=== PATIENT | male | born 1960 | race Caucasian/White ===

== ENCOUNTER 2018-06-12 08:13 | Inpatient (IN) | payer OTHER ==
[2018-06-12 08:14] VITALS: BMI 27.8
--- NOTE | 2018-06-12 09:06 | ED PDOC ---
HPI: Abdomen Time Seen by Provider: 06/12/18 08:33 Chief Complaint (Nursing): Abdominal Pain Chief Complaint (Provider): Abdominal Pain History Per: Patient History/Exam Limitations: no limitations Onset/Duration Of Symptoms: Days (x1 week) Current Symptoms Are (Timing): Still Present Additional Complaint(s): Elías Mcdonald Sr. is a 58 year old male presenting for evaluation of abdominal pain x1 week. Patient states the pain radiates to his lower back and bilateral shoulders. Patient reports an episode of diarrhea with red blood noted afterwards in his stool. Patient further reports associated dizziness, palpitations, and states that for the past month things he eat have "no taste." Patient reports a prior history of a "stomach issue" and states he was evaluated for colitis in the past. Patient denies any fevers, chills, nausea, vomiting, persistent chest pain, or difficulty breathing. PMD: Dr. Salazar Past Medical History Reviewed: Historical Data, Nursing Documentation, Vital Signs Vital Signs: Last Vital Signs Temp 97.8 F 06/12/18 08:14 Pulse 73 06/12/18 08:14 Resp 17 06/12/18 08:14 BP 123/67 06/12/18 08:14 Pulse Ox 98 06/12/18 08:14 - Medical History PMH: No Chronic Diseases - Surgical History Surgical History: No Surg Hx - Family History Family History: States: Unknown Family Hx - Social History Current smoker - smoking cessation education provided: No Alcohol: Social Drugs: Denies - Allergies Allergies/Adverse Reactions: Allergies Allergy/AdvReac Type Severity Reaction Status Date / Time No Known Allergies Allergy Verified 09/15/14 14:02 Review of Systems ROS Statement: Except As Marked, All Systems Reviewed And Found Negative Constitutional: Negative for: Fever, Chills Cardiovascular: Positive for: Palpitations. Negative for: Chest Pain Respiratory: Negative for: Shortness of Breath Gastrointestinal: Positive for: Abdominal Pain, Diarrhea, Other (blood in stool). Negative for: Nausea, Vomiting Genitourinary Male: Negative for: Dysuria, Frequency, Incontinence, Hematuria Musculoskeletal: Positive for: Shoulder Pain, Back Pain Neurological: Positive for: Dizziness Physical Exam - Reviewed Nursing Documentation Reviewed: Yes Vital Signs Reviewed: Yes - Physical Exam Appears: Positive for: Non-toxic, No Acute Distress Head Exam: Positive for: ATRAUMATIC, NORMAL INSPECTION, NORMOCEPHALIC Skin: Positive for: Normal Color, Warm, Dry. Negative for: Rash Eye Exam: Positive for: EOMI, Normal appearance, PERRL ENT: Positive for: Normal ENT Inspection Neck: Positive for: Normal, Painless ROM, Supple Cardiovascular/Chest: Positive for: Regular Rate, Rhythm. Negative for: Murmur Respiratory: Positive for: Normal Breath Sounds. Negative for: Respiratory Distress Gastrointestinal/Abdominal: Positive for: Soft, Tenderness (generalized, no focal areas of pain). Negative for: Guarding, Rebound Back: Positive for: L CVA Tenderness (mild), R CVA Tenderness (mild) Rectal: Positive for: Rectal Tone Is: (normal), Hemorrhoids (small external pile, (-) fissure), Other ([employer]ounder: JOAN Auguste was present during the entire exam) Extremity: Positive for: Normal ROM. Negative for: Pedal Edema, Deformity Neurologic/Psych: Positive for: Alert, Oriented (x3) - Laboratory Results Result Diagrams: 06/12/18 09:05 06/12/18 09:05 - ECG O2 Sat by Pulse Oximetry: 98 (RA) Pulse Ox Interpretation: Normal Medical Decision Making Medical Decision Makin: Impression: Abdominal pain Plan: -Type and screen -CMP -PT/PTT -Pepcid 20mg IVP -Occult blood -Reevaluation Scribe Attestation: Documented by Frank Isabel, acting as a scribe for Jackie Turk MD. Provider Scribe Attestation: All medical record entries made by the Scribe were at my direction and personally dictated by me. I have reviewed the chart and agree that the record accurately reflects my personal performance of the history, physical exam, medical decision making, and the department course for this patient. I have also personally directed, reviewed, and agree with the discharge instructions and disposition. 1.30p Patient still has intermittent pain. is concerned about his overall poor intake and recurrent pain. Imaging suggest acute diverticular disease possible diverticulitis. Will admit to observation. Case d/w Dr. Bedolla, covering Dr. Salazar's patients. Disposition - Clinical Impression Clinical Impression: Abdominal pain - Patient ED Disposition Is Patient to be Admitted: Yes Doctor Will See Patient In The: Hospital - Disposition Disposition: Transfer of Care Disposition Time: 14:00 Condition: FAIR Forms: [employer] (Slovenian) - Pt Status Changed To: Hospital Disposition Of: Observation - POA Present On Arrival: None
[2018-06-12 09:18] LABS: BASO % 0.6 % (0.0-2.0); EOS # 0.1 K/uL (0.0-0.7); EOS % 1.6 % (0.0-4.0); HEMOGLOBIN 15.9 g/dL (12.0-18.0); LYMPH # 2.6 K/uL (1.0-4.3); LYMPH % 39.2 % (20.0-40.0); MEAN CELL VOLUME 87.6 fl (80.0-94.0); MEAN CORPUSCULAR HGB CONC 33.1 g/dL (33.0-37.0); MEAN PLATELET VOLUME 7.3 fl (7.2-11.7); MONO # 0.7 K/uL (0.0-0.8); MONO % 10.7 % (0.0-10.0); NEUT # 3.2 K/uL (1.8-7.0); NEUT % 47.9 % (50.0-75.0); NRBC % 0.1 % (0.0-0.0); RBC 5.48 Mil/uL (4.40-5.90); RED CELL DISTRIBUTION WIDTH 14.3 % (11.5-14.5); WHITE BLOOD COUNT 6.6 K/uL (4.8-10.8)
[2018-06-12 09:25] LABS: PROTHROMBIN TIME 11.4 Seconds (9.8-13.1)
[2018-06-12 09:27] LABS: PARTIAL THROMBOPLASTIN TIME 33.6 Seconds (25.6-37.1)
[2018-06-12 09:42] LABS: ALB/GLOB RATIO 1.2 (1.0-2.1); ALBUMIN 4.6 g/dL (3.5-5.0); BLOOD UREA NITROGEN 12 mg/dl (9-20); CALCIUM 9.5 mg/dL (8.4-10.2); GFR NON-AFRICAN AMERICAN > 60
[2018-06-12 09:48] LABS: ALT/SGPT 38 U/L (21-72); AST/SGOT 48 U/L (17-59)
[2018-06-12] MEDS ORDERED: Sodium Chloride 0.9% 50 ML IV ONE (12:01)
[2018-06-12] MEDS ORDERED: Iohexol 300 100 ML IJ ONE (12:01)
--- NOTE | 2018-06-12 13:19 | CT ---
Date of service: 06/12/2018 PROCEDURE: CT Abdomen and Pelvis with contrast HISTORY: lower abdominal pain COMPARISON: None available. TECHNIQUE: CT scan of the abdomen and pelvis was performed after administration of intravenous contrast. Oral contrast was not administered. Coronal and sagittal reformatted images were obtained. Contrast dose: Radiation dose: Total exam DLP = 467.65 mGy-cm. This CT exam was performed using one or more of the following dose reduction techniques: Automated exposure control, adjustment of the mA and/or kV according to patient size, and/or use of iterative reconstruction technique. FINDINGS: LOWER THORAX: The visualized lungs are clear. LIVER: Mild hepatomegaly and diffuse fatty liver. No gross lesion or ductal dilatation. GALLBLADDER AND BILE DUCTS: Well distended. No calcified gallstones, wall thickening or pericholecystic fluid. PANCREAS: Normal in size with homogeneous enhancement. No gross lesion or ductal dilatation. SPLEEN: Normal in size and appearance. ADRENALS: No discrete nodule. KIDNEYS AND URETERS: Normal in size with homogeneous enhancement. No hydronephrosis. No solid mass. VASCULATURE: No aortic aneurysm. BOWEL: Evaluation of the bowel is limited in the absence of oral contrast. There is moderate segmental dilatation of the mid small bowel loops with air-fluid levels the distal small bowel loops are fluid-filled however normal in caliber. There is also fluid in the ascending colon. There is apparent mild circumferential mural thickening in the transverse, descending and sigmoid colon. There is scattered sigmoid diverticulosis without CT evidence for acute diverticulitis. APPENDIX: Normal appendix. PERITONEUM: No free fluid. No free air. LYMPH NODES: No enlarged lymph nodes. BLADDER: Well distended and normal in appearance. REPRODUCTIVE: The uterus is normal in size. BONES: No acute fracture. Within normal limits for the patient's age. OTHER FINDINGS: None. IMPRESSION: Moderate segmental dilatation of mid small bowel loops, fluid in normal caliber distal small bowel loops and fluid in the ascending colon. Findings could be related to nonspecific acute infectious/inflammatory enteritis and colitis. Apparent mild circumferential mural thickening of the transverse and left hemicolon is nonspecific and could be related to underdistention however nonspecific acute infectious/inflammatory colitis is also a consideration. Clinical follow-up is advised.
[2018-06-12] MEDS ORDERED: Ciprofloxacin 400mg/200ml D5W 400 MG/200 ML BAG IVPB ONE ×2 (13:46→15:47)
[2018-06-12] MEDS ORDERED: metroNIDAZOLE 500mg/100ml NS 100 ML IVPB ONE (14:00)
[2018-06-13] MEDS: metroNIDAZOLE 500mg/100ml NS 100 ML IVPB SCH ×2 (00:45→08:38)
[2018-06-13] MEDS ORDERED: Ciprofloxacin 400mg/200ml D5W 400 MG/200 ML BAG IVPB SCH (06:00)
[2018-06-13 06:11] LABS: HEMOGLOBIN 15.1 g/dL (12.0-18.0); MEAN CELL VOLUME 86.3 fl (80.0-94.0); MEAN CORPUSCULAR HEMOGLOBIN 28.8 pg (27.0-31.0); MEAN CORPUSCULAR HGB CONC 33.4 g/dL (33.0-37.0); RBC 5.23 Mil/uL (4.40-5.90); RED CELL DISTRIBUTION WIDTH 14.1 % (11.5-14.5); WHITE BLOOD COUNT 5.9 K/uL (4.8-10.8)
[2018-06-13 06:21] LABS: BLOOD UREA NITROGEN 11 mg/dl (9-20); CALCIUM 9.2 mg/dL (8.4-10.2); GFR NON-AFRICAN AMERICAN > 60
[2018-06-13 08:17] VITALS: BP 102/65; PULSE 65; RESP 20; TEMP 97.7; O2SAT 96
[2018-06-13 11:22] LABS: URINE BILIRUBIN NEGATIVE (NEGATIVE); URINE BLOOD NEGATIVE (NEGATIVE); URINE CLARITY CLEAR (Clear); URINE COLOR STRAW (YELLOW); URINE GLUCOSE (UA) NEG (NEGATIVE); URINE LEUKOCYTE ESTERASE NEG Leu/uL (Negative); URINE PROTEIN NEGATIVE (NEGATIVE); URINE UROBILINOGEN 0.2-1.0 mg/dL (0.2-1.0)
--- NOTE | 2018-06-13 17:23 | CP.PCM.HP ---
<Nile Montalvo - Last Filed: 06/13/18 17:23> History of Present Illness - History of Present Illness History of Present Illness: Pt is a 58 y/o male with presenting to ED with acute abdominal pain x2 days located in left lower quadrant. Reports that for the past 2 weeks he has had intermittent episodes of blood streaked stool. States he has had abdominal pain and bloating for many years and was told he was lactose intolerance but continues to eat dairy. Denies n/v, diarrhea, fever/chills, recent travel, or sick contacts. Was given Bentyl and Famitidine in ED which resolved his symptoms. Last colonoscopy was 15 years ago and he states he was told he had "colitis." Abdomen/Pelvis CT completed significant for circumferential thickening of transverse colon and descending colon suggestive of inflammatory/infectious colitis, diverticulosis. No diverticulitis seen. PMD: Dr. Keenan Present on Admission - Present on Admission Any Indicators Present on Admission: No Past Patient History - Past Medical History & Family History Past Medical History?: No - Past Social History Smoking Status: Never Smoked - MUSCULOSKELETAL/RHEUMATOLOGICAL Hx Falls: No - PSYCHIATRIC Hx Substance Use: No - SURGICAL HISTORY Hx Surgeries: No - ANESTHESIA Hx Anesthesia: No Meds Home Medications: Home Medication List Medication Instructions Recorded Confirmed Type Ciprofloxacin HCl [Cipro] 500 mg PO BID #20 tablet 06/13/18 Rx Metronidazole [Flagyl] 500 mg PO TID #30 tablet 06/13/18 Rx RX: Omeprazole 20 mg PO DAILY #30 tablet. 06/13/18 Rx Allergies/Adverse Reactions: Allergies Allergy/AdvReac Type Severity Reaction Status Date / Time No Known Allergies Allergy Verified 09/15/14 14:02 Physical Exam - Constitutional Appears: No Acute Distress - Head Exam Head Exam: NORMAL INSPECTION - Eye Exam Eye Exam: Normal appearance - ENT Exam ENT Exam: Mucous Membranes Moist - Respiratory Exam Respiratory Exam: Clear to Auscultation Bilateral - Cardiovascular Exam Cardiovascular Exam: REGULAR RHYTHM - GI/Abdominal Exam GI & Abdominal Exam: Normal Bowel Sounds, Soft, Tenderness (LLQ, mild). absent: Guarding, Hernia, Rigid - Extremities Exam Extremities exam: Negative for: pedal edema - Neurological Exam Neurological exam: Alert - Psychiatric Exam Psychiatric exam: Normal Affect - Skin Skin Exam: Normal Color Results - Vital Signs Recent Vital Signs: Last Vital Signs Temp 97.7 F 06/13/18 08:16 Pulse 65 06/13/18 08:16 Resp 20 06/13/18 08:16 BP 102/65 06/13/18 08:16 Pulse Ox 96 06/13/18 08:16 - Labs Result Diagrams: 06/13/18 05:55 06/13/18 05:55 Labs: Laboratory Results - last 24 hr 06/13/18 06/13/18 06/13/18 05:55 05:55 11:00 WBC 5.9 RBC 5.23 Hgb 15.1 Hct 45.1 MCV 86.3 MCH 28.8 MCHC 33.4 RDW 14.1 Plt Count 256 Sodium 141 Potassium 4.3 Chloride 103 Carbon Dioxide 28 Anion Gap 14 BUN 11 Creatinine 0.9 Est GFR ( Amer) > 60 Est GFR (Non-Af Amer) > 60 Random Glucose 109 Calcium 9.2 C-Reactive Protein < 5.00 Urine Color Straw Urine Clarity Clear Urine pH 6.0 Ur Specific [place] < 1.005 Urine Protein Negative Urine Glucose (UA) Neg Urine Ketones Negative Urine Blood Negative Urine Nitrate Negative Urine Bilirubin Negative Urine Urobilinogen 0.2-1.0 Ur Leukocyte Esterase Neg Urine RBC (Auto) 1 Urine Microscopic WBC < 1 Assessment & Plan - Assessment and Plan (Free Text) Assessment: Pt is a 58 y/o male with presenting to ED with acute abdominal pain x2 days located in left lower quadrant. Reports that for the past 2 weeks he has had intermittent episodes of blood streaked stool. Abdomen/Pelvis CT completed significant for circumferential thickening of transverse colon and descending colon suggestive of inflammatory/infectious colitis, diverticulosis. No diverticulitis seen. Acute abdominal pain -Start Ciprofloxacin and Flagyl for possible infectious colitis or diverticulitis -GI consult -Liquid diet, advance as tolerated Discussed with Dr. Bedolla <Emmanuel Bedolla - Last Filed: 06/14/18 12:09> Results - Vital Signs Recent Vital Signs: Last Vital Signs Temp 97.7 F 06/13/18 08:16 Pulse 65 06/13/18 08:16 Resp 20 06/13/18 08:16 BP 102/65 06/13/18 08:16 Pulse Ox 96 06/13/18 08:16 - Labs Result Diagrams: 06/13/18 05:55 06/13/18 05:55 Attending/Attestation - Attestation I have personally seen and examined this patient.: Yes I have fully participated in the care of the patient.: Yes I have reviewed all pertinent clinical information: Yes
--- NOTE | 2018-06-13 17:24 | CP.PCM.DIS ---
<Nile Montalvo - Last Filed: 06/13/18 17:29> Provider - Provider Date of Admission: 06/12/18 14:07 Attending physician: Emmanuel Bedolla MD Consults: 06/13/18 08:56 Gastroenterology Consult Routine Comment: Consulting Provider: Aayush Cagle Consulting Physician: Aayush Cagle Reason for Consult: abd pain, colitis? Time Spent in preparation of Discharge (in minutes): 35 Hospital Course - Lab Results Lab Results: Micro Results 06/12/18 15:46 Blood-Venous Blood Culture - Preliminary NO GROWTH AFTER 24 HOURS Most Recent Lab Values WBC 5.9 K/uL (4.8-10.8) 06/13/18 05:55 RBC 5.23 Mil/uL (4.40-5.90) 06/13/18 05:55 Hgb 15.1 g/dL (12.0-18.0) 06/13/18 05:55 Hct 45.1 % (35.0-51.0) 06/13/18 05:55 MCV 86.3 fl (80.0-94.0) 06/13/18 05:55 MCH 28.8 pg (27.0-31.0) 06/13/18 05:55 MCHC 33.4 g/dL (33.0-37.0) 06/13/18 05:55 RDW 14.1 % (11.5-14.5) 06/13/18 05:55 Plt Count 256 K/uL (130-400) 06/13/18 05:55 MPV 7.3 fl (7.2-11.7) 06/12/18 09:05 Neut % (Auto) 47.9 % (50.0-75.0) L 06/12/18 09:05 Lymph % (Auto) 39.2 % (20.0-40.0) 06/12/18 09:05 [place] % (Auto) 10.7 % (0.0-10.0) H 06/12/18 09:05 Eos % (Auto) 1.6 % (0.0-4.0) 06/12/18 09:05 Baso % (Auto) 0.6 % (0.0-2.0) 06/12/18 09:05 Neut # (Auto) 3.2 K/uL (1.8-7.0) 06/12/18 09:05 Lymph # (Auto) 2.6 K/uL (1.0-4.3) 06/12/18 09:05 [place] # (Auto) 0.7 K/uL (0.0-0.8) 06/12/18 09:05 Eos # (Auto) 0.1 K/uL (0.0-0.7) 06/12/18 09:05 Baso # (Auto) 0.0 K/uL (0.0-0.2) 06/12/18 09:05 PT 11.4 Seconds (9.8-13.1) 06/12/18 09:05 INR 1.0 06/12/18 09:05 APTT 33.6 Seconds (25.6-37.1) 06/12/18 09:05 Sodium 141 mmol/l (132-148) 06/13/18 05:55 Potassium 4.3 MMOL/L (3.6-5.0) 06/13/18 05:55 Chloride 103 mmol/L (98-107) 06/13/18 05:55 Carbon Dioxide 28 mmol/L (22-30) 06/13/18 05:55 Anion Gap 14 (10-20) 06/13/18 05:55 BUN 11 mg/dl (9-20) 06/13/18 05:55 Creatinine 0.9 mg/dl (0.8-1.5) 06/13/18 05:55 Est GFR ( Amer) > 60 06/13/18 05:55 Est GFR (Non-Af Amer) > 60 06/13/18 05:55 Random Glucose 109 mg/dL (75-110) 06/13/18 05:55 Calcium 9.2 mg/dL (8.4-10.2) 06/13/18 05:55 Total Bilirubin 0.8 mg/dl (0.2-1.3) 06/12/18 09:05 AST 48 U/L (17-59) 06/12/18 09:05 ALT 38 U/L (21-72) 06/12/18 09:05 Alkaline Phosphatase 63 U/L (38-126) 06/12/18 09:05 C-Reactive Protein < 5.00 mg/L (0.0-9.9) 06/13/18 05:55 Total Protein 8.4 G/DL (6.3-8.2) H 06/12/18 09:05 Albumin 4.6 g/dL (3.5-5.0) 06/12/18 09:05 Globulin 3.8 gm/dL (2.2-3.9) 06/12/18 09:05 Albumin/Globulin Ratio 1.2 (1.0-2.1) 06/12/18 09:05 Urine Color Straw (YELLOW) 06/13/18 11:00 Urine Clarity Clear (Clear) 06/13/18 11:00 Urine pH 6.0 (5.0-8.0) 06/13/18 11:00 Ur Specific [place] < 1.005 (1.003-1.030) 06/13/18 11:00 Urine Protein Negative mg/dL (NEGATIVE) 06/13/18 11:00 Urine Glucose (UA) Neg mg/dL (NEGATIVE) 06/13/18 11:00 Urine Ketones Negative mg/dL (NEGATIVE) 06/13/18 11:00 Urine Blood Negative (NEGATIVE) 06/13/18 11:00 Urine Nitrate Negative (NEGATIVE) 06/13/18 11:00 Urine Bilirubin Negative (NEGATIVE) 06/13/18 11:00 Urine Urobilinogen 0.2-1.0 mg/dL (0.2-1.0) 06/13/18 11:00 Ur Leukocyte Esterase Neg Denise/uL (Negative) 06/13/18 11:00 Urine RBC (Auto) 1 /hpf (0-3) 06/13/18 11:00 Urine Microscopic WBC < 1 /hpf (0-5) 06/13/18 11:00 Stool Occult Blood Negative (NEGATIVE) 06/12/18 09:05 Blood Type O POSITIVE 06/12/18 09:05 Blood Type Confirm O POSITIVE 06/12/18 10:25 Antibody Screen Negative 06/12/18 09:05 BBK History Checked No verified bt 06/12/18 09:05 - Hospital Course Hospital Course: Pt is a 58 y/o male with presenting to ED with acute abdominal pain x2 days located in left lower quadrant. Reports that for the past 2 weeks he has had intermittent episodes of blood streaked stool. Abdomen/Pelvis CT completed significant for circumferential thickening of transverse colon and descending colon suggestive of inflammatory/infectious colitis, diverticulosis. No diverticulitis seen. Acute abdominal pain -Abdominal pain improved in the am, pt tolerating diet and had bowel movement -Start Ciprofloxacin and Flagyl for possible infectious colitis or diverticulitis -GI consult- Pt cleared for discharge on Cipro and Flagyl adn PPI. F/U with GI outpatient -Liquid diet, advance as tolerated Discharge Exam - Head Exam Head Exam: ATRAUMATIC, NORMAL INSPECTION, NORMOCEPHALIC - Eye Exam Eye Exam: Normal appearance - ENT Exam ENT Exam: Mucous Membranes Moist - Respiratory Exam Respiratory Exam: Clear to PA & Lateral - Cardiovascular Exam Cardiovascular Exam: REGULAR RHYTHM - GI/Abdominal Exam GI & Abdominal Exam: Normal Bowel Sounds, Soft. absent: Tenderness - Neurological Exam Neurological exam: Alert - Psychiatric Exam Psychiatric exam: Normal Affect - Skin Skin Exam: Normal Color Discharge Plan - Discharge Medications Prescriptions: Ciprofloxacin HCl [Cipro] 500 mg PO BID #20 tablet Metronidazole [Flagyl] 500 mg PO TID #30 tablet RX: Omeprazole 20 mg PO DAILY #30 tablet.dr - Follow Up Plan Condition: FAIR Disposition: HOME/ ROUTINE Instructions: Acute Abdominal Pain (DC) Additional Instructions: follow up with primary MD 1 week Referrals: Sriram Kurtz MD [Staff Provider] - Aayush Cagle MD, PhD [Staff Provider] - <Emmanuel Bedolla - Last Filed: 06/14/18 12:09> Provider - Provider Date of Admission: 06/12/18 14:07 Attending physician: Emmanuel Bedolla MD Consults: 06/13/18 08:56 Gastroenterology Consult Routine Comment: Consulting Provider: Aayush Cagle Consulting Physician: Aayush Cagle Reason for Consult: abd pain, colitis? Hospital Course - Lab Results Lab Results: Micro Results 06/13/18 11:00 Urine,Clean Catch Urine Culture - Final No Growth (<1,000 CFU/ML) 06/12/18 15:46 Blood-Venous Blood Culture - Preliminary NO GROWTH AFTER 24 HOURS Most Recent Lab Values WBC 5.9 K/uL (4.8-10.8) 06/13/18 05:55 RBC 5.23 Mil/uL (4.40-5.90) 06/13/18 05:55 Hgb 15.1 g/dL (12.0-18.0) 06/13/18 05:55 Hct 45.1 % (35.0-51.0) 06/13/18 05:55 MCV 86.3 fl (80.0-94.0) 06/13/18 05:55 MCH 28.8 pg (27.0-31.0) 06/13/18 05:55 MCHC 33.4 g/dL (33.0-37.0) 06/13/18 05:55 RDW 14.1 % (11.5-14.5) 06/13/18 05:55 Plt Count 256 K/uL (130-400) 06/13/18 05:55 MPV 7.3 fl (7.2-11.7) 06/12/18 09:05 Neut % (Auto) 47.9 % (50.0-75.0) L 06/12/18 09:05 Lymph % (Auto) 39.2 % (20.0-40.0) 06/12/18 09:05 [place] % (Auto) 10.7 % (0.0-10.0) H 06/12/18 09:05 Eos % (Auto) 1.6 % (0.0-4.0) 06/12/18 09:05 Baso % (Auto) 0.6 % (0.0-2.0) 06/12/18 09:05 Neut # (Auto) 3.2 K/uL (1.8-7.0) 06/12/18 09:05 Lymph # (Auto) 2.6 K/uL (1.0-4.3) 06/12/18 09:05 [place] # (Auto) 0.7 K/uL (0.0-0.8) 06/12/18 09:05 Eos # (Auto) 0.1 K/uL (0.0-0.7) 06/12/18 09:05 Baso # (Auto) 0.0 K/uL (0.0-0.2) 06/12/18 09:05 PT 11.4 Seconds (9.8-13.1) 06/12/18 09:05 INR 1.0 06/12/18 09:05 APTT 33.6 Seconds (25.6-37.1) 12/05/18 09:05 Sodium 141 mmol/l (132-148) 06/13/18 05:55 Potassium 4.3 MMOL/L (3.6-5.0) 06/13/18 05:55 Chloride 103 mmol/L (98-107) 06/13/18 05:55 Carbon Dioxide 28 mmol/L (22-30) 06/13/18 05:55 Anion Gap 14 (10-20) 06/13/18 05:55 BUN 11 mg/dl (9-20) 06/13/18 05:55 Creatinine 0.9 mg/dl (0.8-1.5) 06/13/18 05:55 Est GFR ( Amer) > 60 06/13/18 05:55 Est GFR (Non-Af Amer) > 60 06/13/18 05:55 Random Glucose 109 mg/dL (75-110) 06/13/18 05:55 Calcium 9.2 mg/dL (8.4-10.2) 06/13/18 05:55 Total Bilirubin 0.8 mg/dl (0.2-1.3) 06/12/18 09:05 AST 48 U/L (17-59) 06/12/18 09:05 ALT 38 U/L (21-72) 06/12/18 09:05 Alkaline Phosphatase 63 U/L (38-126) 06/12/18 09:05 C-Reactive Protein < 5.00 mg/L (0.0-9.9) 06/13/18 05:55 Total Protein 8.4 G/DL (6.3-8.2) H 06/12/18 09:05 Albumin 4.6 g/dL (3.5-5.0) 06/12/18 09:05 Globulin 3.8 gm/dL (2.2-3.9) 06/12/18 09:05 Albumin/Globulin Ratio 1.2 (1.0-2.1) 06/12/18 09:05 Urine Color Straw (YELLOW) 06/13/18 11:00 Urine Clarity Clear (Clear) 06/13/18 11:00 Urine pH 6.0 (5.0-8.0) 06/13/18 11:00 Ur Specific [place] < 1.005 (1.003-1.030) 06/13/18 11:00 Urine Protein Negative mg/dL (NEGATIVE) 06/13/18 11:00 Urine Glucose (UA) Neg mg/dL (NEGATIVE) 06/13/18 11:00 Urine Ketones Negative mg/dL (NEGATIVE) 06/13/18 11:00 Urine Blood Negative (NEGATIVE) 06/13/18 11:00 Urine Nitrate Negative (NEGATIVE) 06/13/18 11:00 Urine Bilirubin Negative (NEGATIVE) 06/13/18 11:00 Urine Urobilinogen 0.2-1.0 mg/dL (0.2-1.0) 06/13/18 11:00 Ur Leukocyte Esterase Neg Denise/uL (Negative) 06/13/18 11:00 Urine RBC (Auto) 1 /hpf (0-3) 06/13/18 11:00 Urine Microscopic WBC < 1 /hpf (0-5) 06/13/18 11:00 Stool Occult Blood Negative (NEGATIVE) 06/12/18 09:05 Blood Type O POSITIVE 06/12/18 09:05 Blood Type Confirm O POSITIVE 06/12/18 10:25 Antibody Screen Negative 06/12/18 09:05 BBK History Checked No verified bt 06/12/18 09:05 Attending/Attestation - Attestation I have personally seen and examined this patient.: Yes I have fully participated in the care of the patient.: Yes I have reviewed all pertinent clinical information, including history, physical exam and plan: Yes
== END 2018-06-13 16:25 | disposition home or self-care (01) | DRG 392 ==
LOC: H.ER 08:13 → H.ERHOLD 14:07 → H.MEDSURG1 17:45
PROVIDERS: ADMIT Family Medicine; ATTEND Family Medicine
DX: A09 Infectious gastroenteritis and colitis, unspecified (principal); K57.92 Diverticulitis of intestine, part unspecified, without perforation or abscess without bleeding; E73.9 Lactose intolerance, unspecified